=== PATIENT | female | born 1945 | race African-American/Black ===

== ENCOUNTER 2025-02-09 20:06 | Emergency (ER) | payer MEDICARE, BC ==
[~2025-02-09] VITALS: Ht 170.2 cm; Wt 80.0 kg
[2025-02-09 20:07] VITALS: O2SAT 100
[2025-02-09 20:48] LABS: BASOPHILS % 0.7 % (0.0-2.0); EOSINOPHILS % 2.8 % (0.0-5.0); HEMATOCRIT. 29.9 % (36.0-48.0); HEMOGLOBIN. 9.8 g/dL (12.0-16.0); LYMPHOCYTES % 43.4 % (20.0-50.0); MEAN PLATELET VOLUME 7.6 fl (7.4-10.4); MONOCYTES % 10.8 % (2.0-8.0); NEUTROPHILS % 42.3 % (40.0-76.0); PLATELET 306 x1000/uL (130-400); RED BLOOD CELL COUNT 3.60 mill/uL (4.2-5.4); RED CELL DISTRIBUTION WIDTH 18.0 % (11.6-14.6)
[2025-02-09 21:02] LABS: CREATININE 1.1 mg/dL (0.6-1.0); TROPONIN I HIGH SENSITIVITY 4 ng/L (3.0-34); UREA NITROGEN BLOOD 16 mg/dL (9-23)
[2025-02-09 21:04] LABS: ASPARTATE AMINOTRANSFERASE 20 IU/L (<34); BILIRUBIN DIRECT 0.1 mg/dL (<=3.0); BILIRUBIN TOTAL 0.4 mg/dL (0.1-1.0); PROTEIN TOTAL 6.4 g/dL (6.0-8.3)
[2025-02-10] MEDS: SODIUM CHLORIDE 0.9% 1,000 ML IV ONE (00:07)
[2025-02-10] MEDS ORDERED: ONDA4TAB50 MT (01:20)
[2025-02-10] MEDS ORDERED: TOPUD MT (01:20)
[2025-02-10 02:17] VITALS: TEMP 36.5
[2025-02-10 04:08] VITALS: BP 108/73; PULSE 62; RESP 18; O2SAT 99
== END 2025-02-10 04:08 | disposition home or self-care (01) ==
LOC: ER 20:06 → CMPBEDREQ 02-10 08:12
DX: R11.2 Nausea with vomiting, unspecified (principal); R42 Dizziness and giddiness; E11.9 Type 2 diabetes mellitus without complications; J45.909 Unspecified asthma, uncomplicated; I25.10 Atherosclerotic heart disease of native coronary artery without angina pectoris; Z86.73 Personal history of transient ischemic attack (TIA), and cerebral infarction without residual deficits; Z88.5 Allergy status to narcotic agent
CPT/HCPCS: 99285; 80076; 80048; 83605; 83690; 85025; 84484; 36415; 93005; 96360; 71045; J7030; A4606